=== PATIENT | female | born 1985 | race Caucasian/White ===

== ENCOUNTER 2019-11-06 21:57 | Emergency (ER) | payer BC ==
[~2019-11-06] VITALS: Ht 149.9 cm; Wt 78.3 kg
[2019-11-06 22:04] VITALS: Ht 149.9 cm; Wt 78.3 kg
[2019-11-06 23:31] VITALS: BP 130/80
== END 2019-11-06 23:31 | disposition home or self-care (01) ==
LOC: ED 21:57
DX: T16.2XXA Foreign body in left ear, initial encounter (principal); W45.8XXA Other foreign body or object entering through skin, initial encounter; Y93.89 Activity, other specified; Y92.89 Other specified places as the place of occurrence of the external cause; Y99.8 Other external cause status